=== PATIENT | female | born 1985 | race Caucasian/White ===

== ENCOUNTER 2019-03-16 10:43 | Emergency (ER) | payer OTHER ==
[~2019-03-16] VITALS: Ht 170.2 cm; Wt 69.9 kg
--- NOTE | 2019-03-16 11:15 | NUR ---
PELVIC PAIN SINCE THIS AFTERNOON WITH BRIGHT RED VB, SPOTTING. STATES PAIN 10/10. HX OF GASTRIC SURGERY 4 YEARS AGO. AOX4, AMBULATORY, VSS, RR EVEN AND UNLABORED ON RA. ON MONITOR, SEEN BY DR GALLAGHER
--- NOTE | 2019-03-16 11:17 | NUR ---
URINE SENT TO STAT LAB
--- NOTE | 2019-03-16 11:18 | NUR ---
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
[2019-03-16 11:25] LABS: APPEARANCE,URINE Cloudy (CLEAR); BILIRUBIN,URINE Negative (NEGATIVE); BLOOD, URINE Trace-lysed Ery/uL (NEGATIVE); COLOR,URINE Yellow (YELLOW); KETONES,URINE Negative (NEGATIVE); LEUKOCYTE ESTERASE ,URINE Small (NEGATIVE); NITRITE, URINE Negative (NEGATIVE); PROTEIN,URINE 30 mg/dl (NEGATIVE); UGLUCOSE Negative (NEGATIVE); UROBILINOGEN,URINE 0.2 EU/dL (0.2)
[2019-03-16 11:49] LABS: BACTERIA,URINE Rare /HPF (None Seen); RBC,URINE 0-2 /HPF (0-2); SQUAMOUS EPITHELIAL CELL,UR Moderate /HPF (None Seen); WBC,URINE 0-2 /HPF (0-3)
[2019-03-16 11:49] LABS: BASOPHILS % (AUTO) 1.1 % (0.0-2.0); HEMATOCRIT 26 % (33-45); LYMPHOCYTES # (AUTO) 0.9 /CMM (0.8-4.8); MEAN CORPUSCULAR HGB CONC 31 g/dl (31.0-36.0); MEAN CORPUSCULAR VOLUME 71 fL (82-100); MONOCYTES # (AUTO) 0.3 /CMM (0.1-1.30); NEUTROPHILS # (AUTO) 3.1 /CMM (1.8-8.9); NEUTROPHILS % (AUTO) 70.9 % (43.0-81.0); PLATELET COUNT (AUTO) 343 /CMM (150-450); RED BLOOD CELL COUNT(AUTO) 3.67 MIL/uL (4.0-5.2); WHITE BLOOD COUNT (AUTO) 4.3 K/uL (4.3-11.0)
[2019-03-16 11:56] LABS: CALCIUM, SERUM 8.3 mg/dL (8.5-10.1); CREATININE 0.8 mg/dL (0.6-1.3); POTASSIUM 3.7 mmol/L (3.5-5.1)
[2019-03-16 12:02] LABS: ALBUMIN 3.3 g/dL (3.4-5.0); BILIRUBIN,TOTAL 0.2 mg/dL (0.2-1.0); TOTAL PROTEIN, SERUM 6.7 g/dL (6.4-8.2)
--- NOTE | 2019-03-16 12:59 | NUR ---
PT TAKEN TO CT VIA [facility]
--- NOTE | 2019-03-16 13:10 | NUR ---
PT BACK FROM CT, RESTING COMFORTABLY IN BED. AWAITING RESULTS
--- NOTE | 2019-03-16 14:08 | NUR ---
Patient discharged to home in stable condition. Written and verbal after care instructions given. Patient verbalizes understanding of instruction.
[2019-03-16 14:09] VITALS: BP 108/58
== END 2019-03-16 14:09 | disposition home or self-care (01) ==
LOC: ER 10:43
DX: K52.9 Noninfective gastroenteritis and colitis, unspecified (principal)
CPT/HCPCS: 36415; 76705-TC; 80048-TC; 80076-TC; 81000-TC; 83690-TC; 84703-TC; 85025-TC

== ENCOUNTER 2019-06-05 12:26 | Emergency (ER) | payer OTHER ==
[~2019-06-05] VITALS: Ht 162.6 cm; Wt 68.9 kg
--- NOTE | 2019-06-05 12:31 | NUR ---
PT BIB SELF C/O HEADACHE SHARP PAIN SINCE THIS MORNING 1030AM 8/10 PS R LEG NUMBNESS, PT IS AAOX4, NOT IN RESPIRATORY DISTRESS, V/S STABLE, KEPT RESTED AND COMFORTABLE, WILL CONTINUE TO MONITOR.
--- NOTE | 2019-06-05 12:36 | NUR ---
URINE SPECIMEN COLLECTED AND SENT TO LAB.
--- NOTE | 2019-06-05 12:41 | NUR ---
SEEN AND EXAMINED BY
--- NOTE | 2019-06-05 12:55 | NUR ---
PT IV LINE ESTABLISHED, BLOOD DRAWNED AND SENT TO LAB.
[2019-06-05 12:58] LABS: BASOPHILS % (AUTO) 0.8 % (0.0-2.0); EOSINOPHILS % (AUTO) 1.4 % (0.0-6.0); HEMATOCRIT 26 % (33-45); HEMOGLOBIN 7.9 g/dL (11.5-14.8); LYMPHOCYTES % (AUTO) 21.1 % (20.0-44.0); MEAN CORPUSCULAR HGB CONC 31 g/dl (31.0-36.0); MEAN CORPUSCULAR VOLUME 69 fL (82-100); MONOCYTES # (AUTO) 0.3 /CMM (0.1-1.30); MONOCYTES % (AUTO) 7.3 % (2.0-12.0); NEUTROPHILS # (AUTO) 3.2 /CMM (1.8-8.9); NEUTROPHILS % (AUTO) 69.4 % (43.0-81.0); PLATELET COUNT (AUTO) 405 /CMM (150-450); RED BLOOD CELL COUNT(AUTO) 3.75 MIL/uL (4.0-5.2); WHITE BLOOD COUNT (AUTO) 4.6 K/uL (4.3-11.0)
[2019-06-05] MEDS ORDERED: KETOROLAC TROMETHAMINE INJ 30 MG/ML VIAL ONE (13:00)
[2019-06-05] MEDS ORDERED: IV NS 0.9% 1,000 ML BAG IV ONE (13:00)
[2019-06-05] MEDS ORDERED: KETOROLAC TROMETHAMINE INJ 30 MG/ML VIAL IV ONE (13:00)
[2019-06-05 13:07] LABS: CALCIUM, SERUM 8.7 mg/dL (8.5-10.1); CREATININE 0.8 mg/dL (0.6-1.3)
--- NOTE | 2019-06-05 13:21 | NUR ---
PT WHEELED TO CT SCAN VIA THE EMPTY JOINT.
[2019-06-05 14:07] VITALS: BP 117/51
[2019-06-05 15:07] LABS: EOSINOPHILS % (MANUAL) 1 % (0-4); LYMPHOCYTES % (MANUAL) 22 % (16-48); MONOCYTES % (MANUAL) 5 % (0-11.0); NEUTROPHILS % (MANUAL) 72 (42-76)
== END 2019-06-05 14:16 | disposition home or self-care (01) ==
LOC: ER 12:26
DX: D64.9 Anemia, unspecified (principal); G89.29 Other chronic pain; R51 Headache; R42 Dizziness and giddiness
CPT/HCPCS: 36415; 70450; 80048; 84703; 85025; 96361; 96374; 99284; J1885; J7030 ×2

== ENCOUNTER 2019-10-06 21:44 | Emergency (ER) | payer OTHER ==
[~2019-10-06] VITALS: Ht 165.1 cm; Wt 80.3 kg
[2019-10-06] MEDS ORDERED: KETOROLAC TROMETHAMINE INJ 60 MG/2 ML VIAL IM ONE ×2 (22:46→23:00)
--- NOTE | 2019-10-06 22:50 | NUR ---
XRAY AT BEDSIDE
--- NOTE | 2019-10-06 23:00 | NUR ---
PT CAME TO ER BED 3 C/O BILATERAL KNEE AND WRIST PAIN S/P FALL. PATIENT STATES SHE WAS WALKING WHEN SHE TRIPPED AND FELL ON HER KNEES AND WRIST. DID NOT HIT HER HEAD. NOT IN ANY DISTRESS. NO SOB. BREATHING EVENLY AND UNLABORED. WILL CONTINUE TO MONITOR.
--- NOTE | 2019-10-06 23:29 | NUR ---
Patient is ambulatory with a steady gait.
--- NOTE | 2019-10-07 | NUR ---
Patient discharged to home in stable condition. Written and verbal after care instructions given. Patient verbalizes understanding of instruction. Presciptions given and explained to patient.
[2019-10-07 00:01] VITALS: BP 135/76
== END 2019-10-07 00:03 | disposition home or self-care (01) ==
LOC: ER 21:49
DX: S83.8X2A Sprain of other specified parts of left knee, initial encounter (principal); S83.8X1A Sprain of other specified parts of right knee, initial encounter; M79.642 Pain in left hand; M79.641 Pain in right hand; W01.0XXA Fall on same level from slipping, tripping and stumbling without subsequent striking against object, initial encounter; Y93.01 Activity, walking, marching and hiking; Y92.89 Other specified places as the place of occurrence of the external cause; Y99.8 Other external cause status
CPT/HCPCS: 73130 ×2; 73564 ×2; 96372; 99283; J1885